=== PATIENT | male | born 1955 | race Caucasian/White ===

== ENCOUNTER 2017-01-02 11:58 | Emergency (ER) | payer OTHER ==
[~2017-01-02] VITALS: Ht 182.9 cm; Wt 88.0 kg
[~2017-01-02 11:58] MED LIST: DEXILANT60 M1 PO; ENDOCET 325 MG-1 TA1 PO; FLAGYL 25O MG250 M1 PO; LEVAQUIN750 MG PO; LIPITOR40 M1 PO; PERCOCET 325 MG1 TA2 PO; PROBIOTIC & ACI1 CAP PO; VALIUM5 M1 PO
--- NOTE | 2017-01-02 12:25 | ED GI/GU/ABDOMINAL COMPLAINT ---
History of Present Illness General Chief Complaint: Abdominal Pain/Flank Pain Stated Complaint: ABD PAIN Source: patient, family, old records Exam Limitations: no limitations Vital Signs & Intake/Output Vital Signs & Intake/Output Vital Signs Date Time Temp Pulse Resp B/P Pulse O2 O2 Flow FiO2 Ox Delivery Rate 01/02 1344 97.9 72 18 142/78 98 Room Air 01/02 1204 97.7 75 20 137/93 98 Room Air Allergies Coded Allergies: Penicillins (UNKNOWN 01/02/17) Reconcile Medications Atorvastatin Calcium (Lipitor) 40 MG TABLET 1 TAB PO QPM CHOLESTEROL ( Reported) Dexlansoprazole (Dexilant) 60 MG CAP.BP 1 CAP PO DAILY ACID REFLUX ( Reported) Oxycodone HCl/Acetaminophen (Percocet 5-325 MG Tablet) 5 MG-325 MG TABLET 1-2 TAB PO Q6P PRN PAIN Triage Note: PT TO ED C/O ABD PAIN SINCE YESTERDAY. PT HAS H/O SIGMOID COLECTOMY FOR DIVERTICULITIS. C/O NAUSEA, DENIES V/D. DR GERONIMO DID PT'S SURGERY 08/2015. DR OVALLE SENT PT TO ED FOR CAT SCAN, AND CAN BE CALLED AT [phone]. Triage Nurses Notes Reviewed? yes HPI: Patient presents with increasing pain in his left lower quadrant that started yesterday. The pain is steadily escalating. The pain is sharp and crampy in nature. There are no aggravating or mitigating factors. There is no nausea vomiting constipation or diarrhea. The pain is currently 8 out of 10. Similar symptoms in the past when he is had diverticulitis. Past History Travel History Traveled to [place] past 21 day No Medical History Any Pertinent Medical History? see below for history Gastrointestinal: diverticulitis History of MRSA: No History of VRE: No History of CDIFF: No Pneumonia Vaccine: 06/06/05 Influenza Vaccine: 06/20/14 Surgical History Surgical History: colon resection Psychosocial History Who do you live with Spouse Services at Home None What is your primary language Comoran Tobacco Use: Quit >30 days ago ETOH Use: occasional use Illicit Drug Use: denies illicit drug use Family History Family History, If Any: MOTHER (liver cancer). FATHER (bone cancer). Hx Contributory? No Review of Systems Review of Systems Constitutional: Reports: no symptoms. EENTM: Reports: no symptoms. Respiratory: Reports: no symptoms. Cardiovascular: Reports: no symptoms. GI: Reports: see HPI, abdominal pain. Genitourinary: Reports: no symptoms. Musculoskeletal: Reports: no symptoms. Skin: Reports: no symptoms. Neurological/Psychological: Reports: no symptoms. Hematologic/Endocrine: Reports: no symptoms. Immunologic/Allergic: Reports: no symptoms. All Other Systems: Reviewed and Negative Physical Exam Physical Exam General Appearance: well developed/nourished, alert, awake, moderate distress Head: atraumatic, normal appearance Eyes: Bilateral: PERRL, EOMI. Ears, Nose, Throat, Mouth: hearing grossly normal, moist mucous membrane Neck: normal inspection, supple, full range of motion Respiratory: normal breath sounds, chest non-tender, no respiratory distress, lungs clear Cardiovascular: regular rate/rhythm, normal peripheral pulses Gastrointestinal: normal bowel sounds, soft, tenderness (LLQ), NO REBOUND OR GUARDING Back: normal inspection, normal range of motion Extremities: normal range of motion Neurologic/Psych: no motor/sensory deficits, awake, alert, oriented x 3, normal gait, normal mood/affect Skin: intact, normal color, warm/dry Core Measures ACS in differential dx? No Severe Sepsis Present: No Septic Shock Present: No Progress Differential Diagnosis: bowel obstruction, colon cancer, diverticulitis, ischemic bowel, inflamm bowel dis, perforated viscous, SBO, ureterolithiasis, UTI/pyelo Plan of Care: Orders Procedure Date/time Status LACTIC ACID 01/02 1529 Active URINALYSIS 01/02 1229 Active TROPONIN LEVEL 01/02 1229 Complete LIPASE 01/02 1229 Complete LACTIC ACID 01/02 1229 Complete COMPREHENSIVE METABOLIC PANEL 01/02 1229 Complete CBC WITHOUT DIFFERENTIAL 01/02 1229 Complete AMYLASE 01/02 1229 Complete EKG 01/02 1229 Active Current Medications Sig/Bruce Start time Last Medication Dose Stop Time Status Admin Morphine Sulfate 4 MG ONCE ONE 01/02 1245 CAN (Morphine) 01/02 1246 Laboratory Tests 01/02/17 1230: Anion Gap 10, Estimated GFR > 60, BUN/Creatinine Ratio 21.3, Glucose 107 H, Lactic Acid 0.9, Calcium 10.1, Total Bilirubin 0.8, AST 32, ALT 43, Alkaline Phosphatase 69, Troponin I < 0.01, Total Protein 6.8, Albumin 4.1, Globulin 2.7, Albumin/Globulin Ratio 1.5, Amylase 42, Lipase 45, CBC w Diff NO MAN DIFF REQ, RBC 5.23, MCV 92.4, MCH 31.4 H, RDW 13.7, MPV 7.9, Gran % 63.8, Lymphocytes % 24.2, Monocytes % 7.1, Eosinophils % 4.5, Basophils % 0.4, Absolute Granulocytes 5.6, Absolute Lymphocytes 2.1, Absolute Monocytes 0.6, Absolute Eosinophils 0.4, Absolute Basophils 0, PUBS MCHC 34.0 Diagnostic Imaging: Viewed by Me: CT Scan. Discussed w/RAD: CT Scan. Radiology Impression: PATIENT: RAKAN BREWER PRESENT AGE: 61 PATIENT ACCOUNT NO: [id number] : 56 LOCATION: [facility] ORDERING PHYSICIAN: JUAN JOSE MORENO MD SERVICE DATE: 01/02/17 EXAM TYPE: CAT - CT ABD & PELVIS W IV CONTRAST EXAMINATION: CT ABDOMEN AND PELVIS WITH CONTRAST CLINICAL INFORMATION: Left lower quadrant pain. Presumptive diagnosis of diverticulitis. COMPARISON: CT scan of the abdomen dated 06/25/2014 and 2013. TECHNIQUE: Multidetector CT volumetric acquisition of the abdomen and pelvis was performed after the administration of 95 mL of intravenous Optiray 320. The data set was reformatted in the sagittal and coronal planes and reviewed on an independent workstation. DLP: 402.17 mGy-cm. FINDINGS: LOWER CHEST: There is a solid noncalcified pleural-based 0.3 cm nodule in the anterobasal segment of the left lower lobe (series 2, image 2), unchanged dating back to 2013, consistent with a benign finding. Mild dependent atelectasis in both lung bases is noted. LIVER, GALLBLADDER, BILIARY TREE: Liver normal size and attenuation. No focal cystic or solid mass or intra-or extrahepatic ductal dilatation. Hepatic and portal veins patent. Gallbladder partially distended and within normal limits. PANCREAS: Normal. No ductal dilatation, mass, or surrounding stranding. SPLEEN: Normal size and appearance. Splenic vein patent. ADRENAL GLANDS AND KIDNEYS: Adrenal glands normal. Kidneys bilaterally symmetric in size and function. No focal mass, hydronephrosis, nephrolithiasis or perinephric stranding. URETERS AND BLADDER: Ureters decompressed and within normal limits. Bladder partially distended and within normal limits. PELVIC ORGANS: Unremarkable. GASTROINTESTINAL TRACT: There are 2 small fat-containing midline supraumbilical ventral wall hernia seen in succession with the more superior smaller hernia measuring approximately 1.3 cm in diameter with a 0.9 cm fascial defect and the more inferior hernia measuring 2.9 x 1.0 x 3.0 cm with a 2.2 x 1.5 cm fascial defect. Small and large bowel loops decompressed. The patient is status post mid sigmoid colonic resection with the bowel anastomotic site appearing unremarkable. No evidence of bowel leak is seen. Scattered colonic diverticulosis is seen with no evidence of acute diverticulitis. Retrocecal appendix in right lower quadrant normal. LYMPHOVASCULAR STRUCTURES: Abdominal aorta normal in caliber. Moderate atherosclerotic calcification of the distal aorta and bifurcation. No periaortic collections. No abdominal or pelvic adenopathy or free fluid collection. BONES: Unremarkable. IMPRESSION: 1. Mid sigmoid colonic anastomotic suture line is seen in the left lower quadrant and appears unremarkable with no evidence of contrast leak or stricture formation. 2. Scattered right and left colonic diverticula are seen with no evidence of acute diverticulitis. 3. Two small supraumbilical midline ventral wall hernias, containing fat only. 4. Stable benign pleural-based nodule in the left lower lobe, unchanged since 2013. DICTATED BY: FLO LEES MD DATE/TIME DICTATED: 01/02/171339 GALLEY WORKER:EMA DATE/TIME TRANSCRIBED:01/02/171339 CONFIDENTIAL, DO NOT COPY WITHOUT APPROPRIATE AUTHORIZATION. <Electronically signed in Other Vendor System> SIGNED BY: FLO LEES MD 01/02/17 1400 Initial ED EKG: SR WITH LAFB Prior EKG: unchanged Departure Departure Disposition: HOME OR SELF CARE Condition: Stable Clinical Impression Primary Impression: Lower abdominal pain, unspecified Referrals: JUANPABLO RIGGINS DO,ERICH PAREKH MD,TOMA Watson (PCP/Family) Additional Instructions: RETURN IF SYMPTOMS WORSEN OR FOR ANY CONCERNS Departure Forms: Customer Survey General Discharge Information Prescriptions: Current Visit Scripts Oxycodone HCl/Acetaminophen (Percocet 5-325 MG Tablet) 1-2 TAB PO Q6P PRN PAIN #20 TAB
[2017-01-02 12:38] LABS: ABSOLUTE BASOPHIL COUNT 0 /CUMM (0.0-0.2); ABSOLUTE EOSINOPHIL COUNT 0.4 /CUMM (0.0-0.7); ABSOLUTE GRANULOCYTE CT 5.6 /CUMM (1.4-6.5); ABSOLUTE LYMPH COUNT 2.1 /CUMM (1.2-3.4); ABSOLUTE MONOCYTE COUNT 0.6 /CUMM (0.10-0.60); BASOPHIL % 0.4 % (0.0-2.0); EOSINOPHIL % 4.5 % (0-5); GRANULOCYTE % 63.8 % (42.2-75.2); HEMATOCRIT 48.4 % (42-52); MEAN CORPUSCULAR HGB 31.4 PG (27.0-31.0); MEAN CORPUSCULAR VOLUME 92.4 FL (80.0-94.0); MEAN PLATELET VOLUME 7.9 FL (7.4-10.4); PLATELET COUNT 277 /CUMM (130-400); RBC DISTRIBUTION WIDTH 13.7 % (11.5-14.5); RED BLOOD CELL CT 5.23 /CUMM (4.70-6.10); WHITE BLOOD CELL COUNT 8.8 /CUMM (4.8-10.8)
[2017-01-02 13:44] VITALS: BP 142/78
--- NOTE | 2017-01-02 14:05 | CT SCAN REPORT ---
EXAMINATION: CT ABDOMEN AND PELVIS WITH CONTRAST CLINICAL INFORMATION: Left lower quadrant pain. Presumptive diagnosis of diverticulitis. COMPARISON: CT scan of the abdomen dated 06/25/2014 and 06/23/2014. TECHNIQUE: Multidetector CT volumetric acquisition of the abdomen and pelvis was performed after the administration of 95 mL of intravenous Optiray 320. The data set was reformatted in the sagittal and coronal planes and reviewed on an independent workstation. DLP: 402.17 mGy-cm. FINDINGS: LOWER CHEST: There is a solid noncalcified pleural-based 0.3 cm nodule in the anterobasal segment of the left lower lobe (series 2, image 2), unchanged dating back to 2013, consistent with a benign finding. Mild dependent atelectasis in both lung bases is noted. LIVER, GALLBLADDER, BILIARY TREE: Liver normal size and attenuation. No focal cystic or solid mass or intra-or extrahepatic ductal dilatation. Hepatic and portal veins patent. Gallbladder partially distended and within normal limits. PANCREAS: Normal. No ductal dilatation, mass, or surrounding stranding. SPLEEN: Normal size and appearance. Splenic vein patent. ADRENAL GLANDS AND KIDNEYS: Adrenal glands normal. Kidneys bilaterally symmetric in size and function. No focal mass, hydronephrosis, nephrolithiasis or perinephric stranding. URETERS AND BLADDER: Ureters decompressed and within normal limits. Bladder partially distended and within normal limits. PELVIC ORGANS: Unremarkable. GASTROINTESTINAL TRACT: There are 2 small fat-containing midline supraumbilical ventral wall hernia seen in succession with the more superior smaller hernia measuring approximately 1.3 cm in diameter with a 0.9 cm fascial defect and the more inferior hernia measuring 2.9 x 1.0 x 3.0 cm with a 2.2 x 1.5 cm fascial defect. Small and large bowel loops decompressed. The patient is status post mid sigmoid colonic resection with the bowel anastomotic site appearing unremarkable. No evidence of bowel leak is seen. Scattered colonic diverticulosis is seen with no evidence of acute diverticulitis. Retrocecal appendix in right lower quadrant normal. LYMPHOVASCULAR STRUCTURES: Abdominal aorta normal in caliber. Moderate atherosclerotic calcification of the distal aorta and bifurcation. No periaortic collections. No abdominal or pelvic adenopathy or free fluid collection. BONES: Unremarkable. IMPRESSION: 1. Mid sigmoid colonic anastomotic suture line is seen in the left lower quadrant and appears unremarkable with no evidence of contrast leak or stricture formation. 2. Scattered right and left colonic diverticula are seen with no evidence of acute diverticulitis. 3. Two small supraumbilical midline ventral wall hernias, containing fat only. 4. Stable benign pleural-based nodule in the left lower lobe, unchanged since 2014.
[2017-01-02] MEDS ORDERED: PERCOCET 5-3251 EACH PO (14:21)
== END 2017-01-02 14:42 ==
LOC: ERH 11:58
PROVIDERS: Emergency Medicine
DX: R10.32 Left lower quadrant pain (principal)
CPT/HCPCS: 74177; 93005; 93010; 96361; 96374